=== PATIENT | female | born 1945 | race Caucasian/White ===

== ENCOUNTER 2017-12-26 15:47 | Outpatient (CLI) | payer MEDICARE, OTHER ==
[~2017-12-26] VITALS: Ht 165.1 cm; Wt 86.2 kg
[2017-12-26] MEDS ORDERED: BACL10TA PO (16:03)
[2017-12-26] MEDS ORDERED: ESTR0.5T VG (16:03)
[2017-12-26] MEDS ORDERED: CHOL200014 PO (16:03)
[2017-12-26] MEDS ORDERED: GABA-488 PO (16:03)
[2017-12-26] MEDS ORDERED: DILT240C53 PO (16:03)
[2017-12-26] MEDS ORDERED: DIPH25TA26 PO (16:03)
[2017-12-26] MEDS ORDERED: PANT40TA2 PO (16:03)
[2017-12-26] MEDS ORDERED: ALPR0.254 PO (16:03)
[2017-12-26] MEDS ORDERED: MULT-35 PO (16:03)
[2017-12-26] MEDS ORDERED: CITA20TA7 PO (16:03)
[2017-12-26 16:08] VITALS: BP 121/71
--- NOTE | 2017-12-26 18:33 | HISTORY AND PHYSICAL ---
DATE OF SERVICE: 12/26/2017 The patient to have outpatient surgery by Dr. Martinez. CHIEF COMPLAINT: Right foot surgery, hammertoe and something else to be done by Dr. Martinez. ALLERGIC TO MEDICATIONS: PENICILLIN. MEDICATIONS NOW ON: Vitamins, vitamin D, baclofen 10 mg, Protonix 40 mg, estradiol 0.5 mg, gabapentin 300 mg b.i.d., baclofen 10 mg 1 at h.s., Celexa 20 mg 1 a day, Xanax 0.25 p.r.n., Cartia 240/25, [id number] melatonin at bedtime. PAST SURGICAL HISTORY: Tonsils, gallbladder, appendectomy, complete hysterectomy, 3 breast biopsies, bladder, rectocele and cystocele done, has metal in chest to evaluate heart rate. FAMILY HISTORY: Sister diabetic, mom and dad heart disease and cancer, brother pacemaker. REVIEW OF SYSTEMS: HEAD: Denies headache, dizziness, fainting. EYES, EARS, NOSE AND THROAT: Denies diplopia, tinnitus, sore throat. RESPIRATORY: Denies asthma, TB, coughing congestion, wheezing never smoked. HEART: Denies heart problems or chest pain. Does have a heart rate problem at time and has a machine that she checks it out with. GASTROINTESTINAL: Appetite good. Denies blood in stools, diarrhea or constipation. GENITOURINARY: Denies blood, pain or frequency. PHYSICAL EXAMINATION: GENERAL: The patient is a white female, well-nourished, well developed in no acute respiratory distress at rest. VITAL SIGNS: Blood pressure 130/90, weight 190. EARS: No discharge. EYES: No conjunctivitis. The patient did have cataract surgeries with implants. Pharynx not inflamed. HEART: Regular rate and rhythm and at times goes into bigeminy which is normal. Sees the blueprinter about this. LUNGS: Clear. ABDOMEN: Soft. Liver and spleen nonpalpable. EXTREMITIES: No pretibial edema. Good dorsalis pedis pulses. ASSESSMENT AND PLAN: The patient is okay to have surgery. We will be on standby if has any problems. Job ID: [id number] DocumentID: [id number] Dictated Date: 12/26/2017 15:21:26 Stone Engraver Date: 12/26/2017 16:08:56 Dictated By: BERNA AYON DO
== END 2017-12-26 16:15 | disposition home or self-care (01) ==
LOC: PREOP 15:47
PROVIDERS: ATTEND Podiatrist Foot & Ankle Surgery
DX: Z01.818 Encounter for other preprocedural examination (principal); Z11.2 Encounter for screening for other bacterial diseases; G57.51 Tarsal tunnel syndrome, right lower limb; M72.2 Plantar fascial fibromatosis; M20.41 Other hammer toe(s) (acquired), right foot
CPT/HCPCS: 87081

== ENCOUNTER 2018-01-02 08:10 | Day surgery (SDC) | payer MEDICARE, OTHER ==
--- NOTE | 2017-12-30 08:26 | HISTORY AND PHYSICAL ---
DATE OF SERVICE: 01/02/2018 The patient to have outpatient surgery by Dr. Martinez. CHIEF COMPLAINT: Right foot surgery, hammertoe and something else to be done by Dr. Martinez. ALLERGIC TO MEDICATIONS: PENICILLIN. MEDICATIONS NOW ON: Vitamins, vitamin D, baclofen 10 mg, Protonix 40 mg, estradiol 0.5 mg, gabapentin 300 mg b.i.d., baclofen 10 mg 1 at h.s., Celexa 20 mg 1 a day, Xanax 0.25 p.r.n., Cartia 240/25, [id number] melatonin at bedtime. PAST SURGICAL HISTORY: Tonsils, gallbladder, appendectomy, complete hysterectomy, 3 breast biopsies, bladder, rectocele and cystocele done, has metal in chest to evaluate heart rate. FAMILY HISTORY: Sister diabetic, mom and dad heart disease and cancer, brother pacemaker. REVIEW OF SYSTEMS: HEAD: Denies headache, dizziness, fainting. EYES, EARS, NOSE AND THROAT: Denies diplopia, tinnitus, sore throat. RESPIRATORY: Denies asthma, TB, coughing congestion, wheezing never smoked. HEART: Denies heart problems or chest pain. Does have a heart rate problem at time and has a machine that she checks it out with. GASTROINTESTINAL: Appetite good. Denies blood in stools, diarrhea or constipation. GENITOURINARY: Denies blood, pain or frequency. PHYSICAL EXAMINATION: GENERAL: The patient is a white female, well-nourished, well developed in no acute respiratory distress at rest. VITAL SIGNS: Blood pressure 130/90, weight 190. EARS: No discharge. EYES: No conjunctivitis. The patient did have cataract surgeries with implants. Pharynx not inflamed. HEART: Regular rate and rhythm and at times goes into bigeminy which is normal. Sees the character actor about this. LUNGS: Clear. ABDOMEN: Soft. Liver and spleen nonpalpable. EXTREMITIES: No pretibial edema. Good dorsalis pedis pulses. ASSESSMENT AND PLAN: The patient is okay to have surgery. We will be on standby if has any problems. Job ID: [id number] DocumentID: [id number] Dictated Date: 12/26/2017 15:21:26 Semiconductor Processing Group Leader Date: 12/26/2017 16:08:56 Dictated By: BERNA AYON DO <Dictated by BERNA A GELLENDER DO> <Electronically signed by BERNA AYON DO> 12/27/17 0646
[~2018-01-02] VITALS: Ht 165.1 cm; Wt 86.2 kg
[2018-01-02 07:50] VITALS: BP 136/89
[~2018-01-02 08:10] MED LIST: ALPR0.254 PO; BACL10TA PO; CHOL200014 PO; CITA20TA7 PO; CLINDAMYCIN 600 MG/50 ML IVPB 50 ML IV ONE; DILT240C53 PO; DIPH25TA26 PO; ESTR0.5T VG; GABA-488 PO; LACTATED RINGERS 1,000 ML IV PRN; MULT-35 PO; PANT40TA2 PO
[2018-01-02] MEDS ORDERED: CATHETER FLUSH 10 ML SYR IV PRN (08:45)
[2018-01-02] MEDS ORDERED: DEXAMETHASONE 10 MG/ML (DECADRON) 1 ML VIAL ONE ×2 (08:52→09:22)
[2018-01-02] MEDS ORDERED: BUPIVACAINE 0.5% 30 ML (SENSORCAINE) VIAL ONE (08:52)
[2018-01-02] MEDS ORDERED: FAMOTIDINE 20MG/2ML IV (PEPCID) IV ONE (09:00)
[2018-01-02] MEDS ORDERED: ONDANSETRON 4 MG/2 ML (SDV) Z0FRAN ONE (09:22)
[2018-01-02] MEDS ORDERED: LIDOCAINE PF 2% 5 ML (XYLOCAINE) VIAL ONE (09:22)
[2018-01-02] MEDS ORDERED: MIDAZOLAM 2 MG/2 ML (VERSED) VIAL ONE (09:22)
[2018-01-02] MEDS ORDERED: proPOfol 200 MG/20 ML (DIPRIVAN) VIAL IV ONE ×2 (09:22→10:42)
[2018-01-02] MEDS ORDERED: fentaNYL INJECTION 100 MCG/2 ML AMP ONE (09:22)
[2018-01-02] MEDS ORDERED: SEVOFLURANE (ULTANE) 15 ML INHAL SOLN ONE (09:22)
--- NOTE | 2018-01-02 09:55 | Progress Note-Pre Operative ---
Pre-Operative Progress Note H&P Reviewed The H&P was reviewed, patient examined and no changes noted. Date Seen by Provider: Jan 02, 2018 Time Seen by Provider: 09:54 Date H&P Reviewed: Jan 02, 2018 Time H&P Reviewed: 09:54 Pre-Operative Diagnosis: Plantar Fasciitis, 2nd digit hammertoe, tarsal tunnel sydrome, right MARYLOU MAHONEY Q DPGregory Jan 02, 2018 9:55 am
[2018-01-02] MEDS ORDERED: LACTATED RINGERS 1,000 ML IV SCH (11:05)
--- NOTE | 2018-01-02 11:05 | Progress Note-Post Operative ---
Post-Operative Progess Note Surgeon (s)/Bag Making Machine Tender (s) Surgeon MARYLOU MAHONEY DPM Bag Making Machine Tender: none Pre-Operative Diagnosis Plantar Fasciitis, 2nd digit hammertoe, tarsal tunnel sydrome, right Post-Operative Diagnosis Same Procedure & Operative Findings Date of Procedure 01/02/18 Procedure Performed/Findings Open Plantar Facial Release, Reduction of 2nd digit Hammertoe, right Anesthesia Type General Estimated Blood Loss Estimated blood loss (mL): Minimal Specimens/Packing Specimens Removed None MARYLOU MAHONEY DPM Jan 02, 2018 11:05 am
[2018-01-02] MEDS ORDERED: CLIN150C2 PO (11:13)
[2018-01-02] MEDS ORDERED: ACHD5005 PO (11:13)
[2018-01-02] MEDS ORDERED: HYDROcodone/APAP 5 MG/325 MG (LORTAB) TAB PO PRN (11:15)
--- NOTE | 2018-01-02 11:51 | Diagnostic Imaging Report ---
INDICATION: Right foot surgery. TIME OF EXAM: 11:29 AM FINDINGS: 2 views right foot demonstrate K wire extending through the second toe. There appears to have been postsurgical changes involving the distal aspect of the proximal phalanx of the second toe. No acute fractures are seen. Metatarsals are intact. IMPRESSION: Postop changes. No acute feature is detected. Dictated by: Dictated on workstation # [id number]
[2018-01-02 12:00] VITALS: BP 135/69
[2018-01-02 12:01] VITALS: BP 135/69
[2018-01-02 12:30] VITALS: BP 128/65
--- NOTE | 2018-01-02 13:28 | Anesthesia-General Post-Op ---
General Patient Condition Mental Status/LOC: Same as Preop Cardiovascular: Satisfactory Nausea/Vomiting: Absent Respiratory: Satisfactory Pain: Controlled Complications: Absent Post Op Complications Complications None Follow Up Care/Instructions Patient Instructions None needed. Anesthesia/Patient Condition Patient Condition Patient was seen after surgery and prior to her discharge and she was doing well , no complaints, stable vital signs, no apparent adverse anesthesia problems. ELEAZAR GAMA DO Jan 02, 2018 13:28
--- NOTE | 2018-01-02 13:50 | Physical Therapy Ortho Eval ---
PT Orthopedic Evaluation Type of Surgery Tarsal Tunnel/Hammertoe Prior Level of Function Current Living Status: Spouse Locomotion (Upon Admit): Independent Established Durable Medical Eq: Front Wheeled Walker Subjective Subjective Agreeable. Reports she has used a walker before. Reports her will be able to assist as needed. Verbalized that she understood what partial weight bear meant. Entry Into Home: Stairs With Railing Steps Into Home: 2 Motor Control Motor Control: Motor Control WNL ROM ROM: WFL Strength Strength: WFL Transfer Transfers (B, C, W/C) (FIM): 6 Pt able to get in and out of bed without assist; able to transfer sit to stand without assist; required cues for hand placement (to reach back) to sit down. Gait Gait Assistive Device: FWW Right Lower Extremity: Right Weight Bearing Status RLE: Partial Weight Bearing Left Lower Extremity: Left Weight Bearing Status LLE: Full Weight Bearing Gait (FIM): 5 (6 post treatment) Distance (FIM): 3=150 ft Summary/Comments Safe steady gait and maintained PWB status. up/down a curb step with sBA and skilled cues for sequencing. Wheelchair Wheelchair Distance (FIM): 0=does not occure Treatment Rendered Treatment: Gait Train, Step Train Assessment/Goals Goal Time Frame: 1 Visit Safe Ambulation: Yes Plan Treatment Plan: Discharge PT/Family Agrees to Plan: Yes Time Time In: 1324 Time Out: 1348 Total Billed Treatment Time: 24 Billed Treatment Time visit EVL 24 PT/OT Therapy GCodes Therapy Functional Limitation: Physical Therapy Test(s)/Tool used to determine: Level of Assistance Scale Functional Limitation-Current Charge Code: MOBCUR Modifier: CJ Functional Limitation-Goal Charge Code: MOBGOAL Modifier: CI Functional Limitation-D/C Charge Codes: MOBDC Modifier: CI GHADA LOGAN PT Jan 02, 2018 13:50
--- NOTE | 2018-01-02 19:06 | OPERATIVE REPORT ---
DATE OF SERVICE: 01/02/2018 SURGEON: Yamile Mahoney DPM PREOPERATIVE DIAGNOSES: 1. Plantar fasciitis, right. 2. Hammer digit syndrome, right second digit. POSTOPERATIVE DIAGNOSES: 1. Plantar fasciitis, right. 2. Hammer digit syndrome, right second digit. PROCEDURE: 1. Open plantar fascial release, right. 2. Reduction of hammertoe, right second digit. WOUND CLASS: Clean. ANESTHESIA: General. HEMOSTASIS: Pneumatic thigh tourniquet at 300 mmHg. INDICATION: This is a 72-year-old female, who presents complaining of chronic pain to her right heel and second toe. Conservative therapy was met with a unsatisfactory result and the patient is agreeable to surgical intervention. After risks and complications were discussed at length, no guarantees were extended to the patient and she is willing to proceed. DESCRIPTION OF PROCEDURE: The patient was brought back to the operating table, placed in secure supine position. Appropriate time out was performed. General anesthetic was then induced. The right foot was anesthetized to the medial aspect of the right heel and to the right second toe in a digital block with 12 mL of 0.5% Marcaine plain. The right foot was then prepped and draped in normal sterile manner. The right foot was then elevated and allowed to exsanguinated and the tourniquet was then inflated to 300 mmHg. Attention was then directed to the medial aspect of the right heel where a 2.5 cm longitudinal linear incision was created from the anterior to posterior at the junction of the dorsal and plantar skin. The incision was deepened bluntly with dissection between the subcutaneous tissue and the plantar fascia. The superior and inferior aspect of the plantar fascia was palpated through with instrumentation. Next, the medial third of the plantar fascia was then incised utilizing dissecting scissors. Good tension release was noted to the plantar fascia percutaneously. A probe was introduced into the wound confirming release of the plantar fascia at least the medial third. The wound was flushed with copious amounts of normal saline and closure was then performed in layers. A deep closure was performed with 4-0 Vicryl, superficial with 4-0 Vicryl and skin closure with 4-0 Prolene in a horizontal mattress type stitch. Attention was then directed to the right second toe where a semirigid contracture was identified. A 5 cm longitudinal linear incision was created from the metatarsal phalangeal joint to the distal interphalangeal joint. The incision was deepened in the same plane with great care to identify and retract all vital neurovascular structures and only the necessary blood vessels were cauterized as encountered. The incision was deepened down to the extensor tendon where a Z slide lengthening was performed. The extensor tendon was reflected proximally and the extensor hassan released overlying pneumatic metatarsophalangeal joint. A dorsal capsulorrhaphy was performed to the metatarsophalangeal joint. This allowed the proximal phalanx to come down into more rectus alignment. The head of the proximal phalanx was then fashioned into a peg utilizing power sagittal saw and a power bur, and hole was created to the base of the middle phalanx with a power bur. The wound was flushed with copious amounts of normal saline. The arthrodesis site to the proximal interphalangeal joint was secured with a 0.054 smooth K wire. The excess K wire coming out the end of the toe was caught and a protective ball placed over the end of the wire. The wound was flushed once again after, which closure was performed in layers. Deep closure was performed with 3-0 Vicryl, superficial with 4-0 Vicryl, skin closed with 4-0 Prolene in a horizontal mattress type stitch. Postoperative injection consisted of 10 mL of 0.5% Marcaine plain injected in local infusion to the surgical sites. This was followed by 10 mg dexamethasone injected into the plantar fascia area of the right foot. Tourniquet was released noting appropriate capillary refill time to all digits of the right foot including the second digit. The dressing consisted of Betadine soaked Adaptic, sterile 4 x 4, sterile Kerlix all secured with a Coban wrap. The patient tolerated the anesthesia and procedure well and was transported from the operating room to the recovery area with vital signs stable. Postop instructions were dispensed to the patient. She is to be partial weightbearing on the right foot with a walker or crutches. She was given a prescription for clindamycin as well as hydrocodone. She is to follow up in the office in 10 days' period of time or sooner if necessary. Job ID: [id number] DocumentID: [id number] Dictated Date: 01/02/2018 11:21:31 Dimpling Machine Operator Date: 01/02/2018 19:05:18 Dictated By: YAMILE MAHONEY DPM
== END 2018-01-02 13:45 | disposition home or self-care (01) ==
LOC: SDC 08:10
PROVIDERS: ATTEND Podiatrist Foot & Ankle Surgery
DX: M72.2 Plantar fascial fibromatosis (principal); M20.41 Other hammer toe(s) (acquired), right foot; G47.33 Obstructive sleep apnea (adult) (pediatric); F41.9 Anxiety disorder, unspecified; K21.9 Gastro-esophageal reflux disease without esophagitis; Z79.899 Other long term (current) drug therapy; Z88.0 Allergy status to penicillin
CPT/HCPCS: 73620

== ENCOUNTER 2018-03-02 10:47 | Outpatient (CLI) | payer MEDICARE, OTHER ==
[~2018-03-02] VITALS: Ht 165.1 cm; Wt 88.0 kg
[~2018-03-02 10:47] MED LIST changes: +ACHD5005 PO; -CITA20TA7 PO; +CITA20TA9 PO; +CLIN150C2 PO; -CLINDAMYCIN 600 MG/50 ML IVPB 50 ML IV ONE; -LACTATED RINGERS 1,000 ML IV PRN
[2018-03-02 11:00] VITALS: BP 132/71
--- NOTE | 2018-03-02 12:12 | HISTORY AND PHYSICAL ---
DATE OF SERVICE: CHIEF COMPLAINT: "I have plantar fasciitis, left foot, had surgery by Dr. Martinez." ALLERGIC TO MEDICATIONS: PENICILLIN. MEDICATIONS: Now on vitamins, vitamin D, baclofen 10 mg 1 at bedtime, Protonix 40 mg 1 daily, estradiol 0.5 mg 3 pills in vagina 3 times a week, gabapentin 300 mg 2 a day, Celexa 20 mg 1 daily, Cartia 240 24 hours one daily, Xanax 0.25 mg p.r.n. SURGERIES: Rectocele, cystocele, right wrist, tonsils, complete hysterectomy, right foot. FAMILY HISTORY: Sister, diabetes. Both parents, cancer. Denies asthma, TB, heart disease, lung disease. REVIEW OF SYSTEMS: HEAD: Denies headache, dizziness, fainting. EYES, EARS, NOSE AND THROAT: Denies diplopia, tinnitus or sore throat. HEART: Denies heart murmur chest pain, shortness of breath. Does get skipped beats and have put in. LUNGS: Denies asthma, TB, coughing, congestion, wheezing. GASTROINTESTINAL: Appetite good. Denies blood in stools, diarrhea or constipation, also vomiting. GENITOURINARY: Denies blood, pain or frequency. PHYSICAL EXAMINATION: GENERAL: The patient is a white female, well nourished, well developed, in no acute respiratory distress at rest. VITAL SIGNS: Weight 193, blood pressure 140/82, pulse 70. EARS: No discharge. EYES: No conjunctivitis or icterus. THROAT: Noninflamed, has upper and lower dentures. NECK: Thyroid not enlarged. No abnormal cervical lymphadenopathy noted. HEART: Regular rate and rhythm. LUNGS: Clear to auscultation. ABDOMEN: Soft. Liver and spleen nonpalpable. EXTREMITIES: No pretibial edema. Good dorsalis pedis pulses. The patient okay for surgery, will be on standby if has any problems. Job ID: [id number] DocumentID: [id number] Dictated Date: 03/02/2018 10:33:14 Advertising Sales Representative Date: 03/02/2018 11:17:49 Dictated By: BERNA AYON DO
[2018-03-20] MEDS ORDERED: TRAM50TA2 PO (09:29)
== END 2018-03-02 11:15 | disposition home or self-care (01) ==
LOC: PREOP 10:47
PROVIDERS: ATTEND Podiatrist Foot & Ankle Surgery
DX: Z01.818 Encounter for other preprocedural examination (principal); Z11.2 Encounter for screening for other bacterial diseases; M72.2 Plantar fascial fibromatosis
CPT/HCPCS: 87081

== ENCOUNTER → 2018-10-04 | Outpatient (CLI) | payer MEDICARE, OTHER ==
[~2018-10-04] MED LIST changes: -CHOL200014 PO; +CHOL200085 PO; +TRAM50TA2 PO
--- NOTE | 2018-10-04 15:46 | Diagnostic Imaging Report ---
PROCEDURE: MRI left joint lower extremity without contrast. TECHNIQUE: Multiplanar, multisequence non contrast-enhanced MRI of the left lower extremity was accomplished. INDICATION: Left ankle pain. FINDINGS: The marrow signal intensity of the ankle is normal. No geographic marrow lesion is seen. No marrow edema is identified. The Achilles tendon has a normal signal intensity and normal morphology. The peroneus brevis and longus tendons are intact. The posterior tibialis, flexor digitorum, and flexor hallucis longus tendons appear to be intact. The anterior and posterior syndesmotic ligaments as well as the anterior and posterior talofibular ligaments appear to be intact. The superficial and deep bundles of the deltoid ligament appear to be intact. No definite space-occupying lesion within the tarsal tunnel is identified. There are some mid foot degenerative changes noted. Small amount of ankle fluid is present. IMPRESSION: Ankle joint effusion and midfoot degenerative change. No definite ligamentous or tendinous abnormality is detected. Dictated by: Dictated on workstation # [id number]
== END ==
LOC: RAD 11:29
PROVIDERS: ATTEND Podiatrist Foot & Ankle Surgery
DX: M19.072 Primary osteoarthritis, left ankle and foot (principal); G57.52 Tarsal tunnel syndrome, left lower limb; M76.822 Posterior tibial tendinitis, left leg
CPT/HCPCS: 73721

== ENCOUNTER 2018-11-02 05:56 | Outpatient (CLI) | payer MEDICARE, OTHER ==
[~2018-11-02] VITALS: Ht 165.1 cm; Wt 88.0 kg
[~2018-11-02 05:56] MED LIST changes: +CHOL200014 PO; -CHOL200085 PO
[2018-11-02] MEDS ORDERED: MULT-974 PO (11:57)
== END 2018-11-02 15:00 | disposition home or self-care (01) ==
LOC: PREOP 05:56
PROVIDERS: ATTEND Podiatrist Foot & Ankle Surgery
DX: Z01.818 Encounter for other preprocedural examination (principal)

== ENCOUNTER 2018-11-20 05:48 | Day surgery (SDC) | payer MEDICARE, OTHER ==
--- NOTE | 2018-11-02 10:59 | HISTORY AND PHYSICAL ---
DATE OF SERVICE: DATE OF ADMISSION: 11/06/2018. CHIEF COMPLAINT: The patient is to have foot surgery by Dr. Martinez. The patient is to have left foot surgery for tarsal tunnel this Tuesday. ALLERGIES: PENICILLIN. MEDICATIONS NOW ON: 1. Vitamins. 2. Baclofen 10 mg. 3. Protonix. 4. Gabapentin 300 mg. 5. Celexa 20 mg. 6. Xanax 0.25 p.r.n. 7. Cartia 240 per 24 hours one daily. 8. Lipitor 10 mg at bedtime. 9. Enteric coated aspirin 81 mg one daily. 10. Melatonin at bedtime. The patient last May had a stroke and put on aspirin and Lipitor. The patient has no residuals. PREVIOUS SURGERIES: Feet surgery, tonsils, appendectomy, gallbladder and three back surgeries. FAMILY HISTORY: Denies asthma, TB and diabetes. Sister diabetic, mother and father, heart disease and cancer. REVIEW OF SYSTEMS: HEAD: Denies headache, dizziness or fainting. EYES, EARS, NOSE AND THROAT: Denies diplopia, tinnitus and sore throat. HEART: Denies heart murmur and chest pain. LUNGS: Denies asthma, TB, coughing, congestion or wheezing. GASTROINTESTINAL: Appetite good. Denies blood in stools, diarrhea or constipation. GENITOURINARY: Denies dysuria, pyuria or hematuria. PHYSICAL EXAMINATION: GENERAL: The patient is a white female, well nourished, well developed, in no acute respiratory distress at rest. VITAL SIGNS: Weight is 192. Blood pressure is 120/70. Pulse is 70. EARS: No drainage. EYES: No conjunctivitis or icterus. THROAT: Not inflamed. NECK: Thyroid not enlarged. No abnormal cervical lymphadenopathy noted. HEART: Regular rate and rhythm. LUNGS: Clear to auscultation. ABDOMEN: Soft. EXTREMITIES: No pretibial edema. Good dorsalis pedis pulses. The patient is okay to have surgery. The patient should stop taking her aspirin 5 days before surgery. Job ID: [id number] DocumentID: [id number] Dictated Date: 11/02/2018 10:19:38 Motor And Generator Assembler Date: 11/02/2018 10:58:32 Dictated By: BERNA AYON DO
[~2018-11-20] VITALS: Ht 165.1 cm; Wt 85.5 kg
[~2018-11-20 05:48] MED LIST changes: +MULT-974 PO
[2018-11-20 06:15] VITALS: BP 118/71
[2018-11-20] MEDS ORDERED: VANCOMYCIN INJECTION 1,000 MG in NS (IVPB) 250 ML IV ONE (06:15)
[2018-11-20] MEDS: LACTATED RINGERS 1,000 ML IV PRN ×2 (06:35→09:02)
[2018-11-20] MEDS ORDERED: fentaNYL INJECTION 100 MCG/2 ML AMP ONE (06:53)
[2018-11-20] MEDS ORDERED: MIDAZOLAM 2 MG/2 ML (VERSED) VIAL ONE (06:53)
[2018-11-20] MEDS ORDERED: ASPI-586 PO (06:58)
[2018-11-20] MEDS ORDERED: BUPIVACAINE 0.5% 30 ML (SENSORCAINE) VIAL ONE (07:03)
[2018-11-20] MEDS ORDERED: DEXAMETHASONE 10 MG/ML (DECADRON) 1 ML VIAL ONE (07:03)
--- NOTE | 2018-11-20 07:37 | Progress Note-Pre Operative ---
Pre-Operative Progress Note H&P Reviewed The H&P was reviewed, patient examined and no changes noted. Date Seen by Provider: Nov 20, 2018 Time Seen by Provider: 07:30 Date H&P Reviewed: Nov 20, 2018 Time H&P Reviewed: 07:30 Pre-Operative Diagnosis: Tarsal Tunnel Syndrome left MARYLOU MAHONEY DPM Nov 20, 2018 07:37
[2018-11-20] MEDS ORDERED: SEVOFLURANE (ULTANE) 15 ML INHAL SOLN ONE ×3 (08:40→09:19)
[2018-11-20] MEDS ORDERED: LIDOCAINE PF 2% 5 ML (XYLOCAINE) VIAL ONE (08:40)
[2018-11-20] MEDS ORDERED: proPOfol 200 MG/20 ML (DIPRIVAN) VIAL IV ONE (08:40)
[2018-11-20] MEDS ORDERED: ONDANSETRON 4 MG/2 ML (SDV) Z0FRAN ONE (08:41)
[2018-11-20] MEDS ORDERED: LACTATED RINGERS 1,000 ML IV ONE (08:57)
[2018-11-20] MEDS ORDERED: LACTATED RINGERS 1,000 ML IV SCH (09:22)
--- NOTE | 2018-11-20 09:22 | Progress Note-Post Operative ---
Post-Operative Progess Note Surgeon (s)/Dressage Judge (s) Surgeon MARYLOU MAHONEY DPM Dressage Judge: none Pre-Operative Diagnosis Tarsal Tunnel Syndrome left Post-Operative Diagnosis Tarsal Tunnel Syndrome, Plantar Fasciitis, left Procedure & Operative Findings Date of Procedure 11/20/18 Procedure Performed/Findings Tarsal Tunnel Release, Open Plantar Fasciectomy, left foot Anesthesia Type General Estimated Blood Loss Estimated blood loss (mL): Minimal Specimens/Packing Specimens Removed none MARYLOU MAHONEY DPM Nov 20, 2018 09:22
[2018-11-20] MEDS ORDERED: ACHD5005 PO (09:26)
[2018-11-20] MEDS ORDERED: ONDANSETRON 4 MG/2 ML (SDV) Z0FRAN IVP PRN (09:30)
[2018-11-20] MEDS ORDERED: HYDROcodone/APAP 5 MG/325 MG (LORTAB) TAB PO PRN (09:30)
[2018-11-20] MEDS ORDERED: MEPERIDINE (DEMEROL) INJ 50 MG/ML IVP ONE (09:30)
[2018-11-20] MEDS ORDERED: morphine INJ 10 MG/ML 1ML (SYR OR VIAL) IVP ONE (09:30)
[2018-11-20 10:00] VITALS: BP 128/72
[2018-11-20 10:30] VITALS: BP 140/68
--- NOTE | 2018-11-20 10:58 | Physical Therapy Ortho Eval ---
PT Orthopedic Evaluation Type of Surgery tarsal tunnel left foot Prior Level of Function Current Living Status: Spouse Locomotion (Upon Admit): Independent Established Durable Medical Eq: Front Wheeled Walker Subjective Subjective Patient in bed pre tx, agrees to PT, has no complaints of pain, states her left foot is pretty numb. Patient has a splint on her left foot and ankle. Entry Into Home: Stairs With Railing Steps Into Home: 2 Motor Control NT ROM NT Strength RLE 4/5 gross Transfer Transfers (B, C, W/C) (FIM): 4 Gait Gait Assistive Device: FWW Left Lower Extremity: Left Weight Bearing Status LLE: Non Weight Bearing Gait (FIM): 1 Distance: 20' Gait Level of Assist: 4 Summary/Comments Patient ambulated 20' with a rolling walker with min assist. Patient is retropulsive immediately upon standing, unsteady with ambulation at first even after standing at the edge of the bed for a few minutes. Poor endurance, however, patient is able to maintain her weight bearing status on the left leg. Patient not able to perform a step at this time. She is not able to lift her right foot off the floor far enough for this yet. Treatment Rendered Treatment: Therapeutic Exercises, Gait Train Exercise Instruction: Heel Slides LAQ Assessment/Goals Goal Time Frame: 1 Visit Plan Treatment Plan: Discharge PT/Family Agrees to Plan: Yes Time Time In: 1030 Time Out: 1042 Total Billed Treatment Time: 12 Billed Treatment Time 1 visit EVM 12' No LOU NGUYEN PT Nov 20, 2018 10:58
[2018-11-20 11:00] VITALS: BP 140/68
[2018-11-20 11:20] VITALS: BP 140/68
--- NOTE | 2018-11-20 14:22 | OPERATIVE REPORT ---
DATE OF SERVICE: 11/20/2018 SURGEON: Yamile Martinez DPM. PREOPERATIVE DIAGNOSES: 1. Tarsal tunnel syndrome, left foot. 2. Plummer's neuritis, left foot. 3. Plantar fasciitis, left foot. POSTOPERATIVE DIAGNOSES: 1. Tarsal tunnel syndrome, left foot. 2. Plummer's neuritis, left foot. 3. Plantar fasciitis, left foot. PROCEDURES: 1. Tarsal tunnel release, left. 2. Open plantar fasciectomy, left foot. 3. Release of Plummer's nerve left foot. WOUND CLASS: Clean. ANESTHESIA: General. HEMOSTASIS: Pneumatic thigh tourniquet at 250 mmHg. INDICATIONS: This is a 73-year-old female who presents complaining of a painful left foot and heel. Conservative therapy has been with unsatisfactory results and the patient is agreeable to surgical intervention after risks and complications were discussed at length. No guarantees were extended to the patient and she is willing to proceed. DESCRIPTION OF PROCEDURE: The patient was brought back to the operative table, placed in secure supine position. Appropriate time out was performed. A pneumatic thigh tourniquet was placed on the left lower extremity over several layers of padding. General anesthetic was then induced. Next, utilizing aseptic technique, a proximal tarsal tunnel block was performed with great care to aspirate to inject into any vascular structures. The left foot was then prepped and draped in the normal sterile manner. The left foot was then elevated and allowed to exsanguinate after which the tourniquet was inflated to 250 mmHg. Attention was then directed to the medial aspect of the left foot where a 7 cm longitudinal curvilinear incision was created from just posterior to the medial malleolus to the inferior aspect of the calcaneus and anterior to the weightbearing surface of the left calcaneus. The incision was deepened in the same plane with great care to identify and retract all vital neurovascular structures. All the necessary blood vessels were cauterized as encountered. The incision was deepened down to the deep fascia where the flexor retinaculum was identified, tented and released with great care to protect the underlying neurovascular structures. This exposed the vena comitantes as well as the posterior tibial artery. Next, the deep fascia overlying the abductor hallucis muscle belly was released. The tarsal tunnel was continued plantarly through the portal, which was then dilated and the abductor and muscle belly was carefully dissected from the deep fascia and Metzenbaum scissors. This allowed for the release of the medial calcaneal nerve, which was followed to its plantar orientation just below the quadratus plantae and around the quadratus plantae area. The tourniquet was released noting no active bleeders. Attention was then directed to the plantar medial aspect of the left heel where the medial band of the plantar fascia was released as well as the medial section of the central plantar was also released utilizing Metzenbaum scissors. Percutaneous palpation of the medial band of the plantar fascia noted good reduction of the tension. The wounds were flushed with copious amounts of normal saline and closure was then released. Closure was then performed. The subcutaneous tissue was reapproximated utilizing with 4-0 Vicryl, skin closed with 4-0 Prolene in a simple interrupted as well as a horizontal mattress type stitch. Postoperative injection consisted of 10 mL of 0.5% Marcaine injected in a local infused into the surgical site in addition to 10 mg of dexamethasone. Postoperative dressing consisted of Betadine soaked Adaptic, sterile 4 x 4's, Kerlix, soft roll, ABD pads, a posterior splint and Harry wraps. The patient tolerated the anesthesia and procedure well, was transported from the operating room to the recovery area with vital signs stable and vascular status intact to all digits of the left foot. She is to be nonweightbearing on the left foot was given a prescription for Vicodin. She has been instructed to be nonweightbearing with toe-touch for balance only utilizing crutches or a walker. She is to follow up in my office in 10 days' period of time or sooner if necessary. Job ID: [id number] DocumentID: [id number] Dictated Date: 11/20/2018 09:33:59 Wire Frame Lampshade Maker Date: 11/20/2018 14:22:29 Dictated By: SAVANNA KELLY
== END 2018-11-20 11:20 | disposition home or self-care (01) ==
LOC: SDC 05:48
PROVIDERS: ATTEND Podiatrist Foot & Ankle Surgery
DX: G57.52 Tarsal tunnel syndrome, left lower limb (principal); M72.2 Plantar fascial fibromatosis; G47.33 Obstructive sleep apnea (adult) (pediatric); M06.9 Rheumatoid arthritis, unspecified; F41.9 Anxiety disorder, unspecified; Z11.2 Encounter for screening for other bacterial diseases; Z86.73 Personal history of transient ischemic attack (TIA), and cerebral infarction without residual deficits; Z79.899 Other long term (current) drug therapy; Z79.82 Long term (current) use of aspirin; Z88.0 Allergy status to penicillin
CPT/HCPCS: 87081

== ENCOUNTER → 2023-07-27 | Outpatient (CLI) | payer MEDICARE, OTHER ==
[~2023-07-27] MED LIST changes: +ALPR.25T PO; -ALPR0.254 PO; +ASPI-586 PO; -TRAM50TA2 PO; +TRM50T PO
== END | disposition home or self-care (01) ==
LOC: PREOP 05:46
PROVIDERS: ATTEND Podiatrist Foot & Ankle Surgery
DX: Z01.818 Encounter for other preprocedural examination (principal)

== ENCOUNTER 2023-08-05 05:59 | Day surgery (SDC) | payer MEDICARE, OTHER ==
[2023-08-05] VITALS (11 sets, daily range): BP systolic 134–161; BP diastolic 68–82
[~2023-08-05] VITALS: Ht 165.1 cm; Wt 84.1 kg
[~2023-08-05 05:59] MED LIST changes: +ASCO100024 PO; +ATOR40TA70 PO; -ESTR0.5T VG; +ESTR0.5T2 VG; +HYDR-3584 PO; +VITA100033 PO
[2023-08-05] MEDS ORDERED: LACTATED RINGERS 1,000 ML 1,000 ML IV PRN (06:30)
[2023-08-05] MEDS ORDERED: VANCOMYCIN INJECTION 1,000 MG in NS (IVPB) 250 ML 250 ML IV ONE (06:30)
[2023-08-05] MEDS ORDERED: LIDOCAINE PF 2% 5 ML VIAL ONE (07:05)
[2023-08-05] MEDS ORDERED: fentaNYL INJECTION 100 MCG/2 ML VIAL ONE (07:05)
[2023-08-05] MEDS ORDERED: proPOfol INJECTION 200 MG/20 ML VIAL IV ONE (07:05)
[2023-08-05] MEDS ORDERED: dexAMETHasone INJ 10 MG/ML 1 ML VIAL ONE (07:05)
[2023-08-05] MEDS ORDERED: ONDANSETRON INJECTION 4 MG/2 ML (SDV) ONE (07:05)
[2023-08-05] MEDS ORDERED: BUPIVACAINE 0.5% 30 ML VIAL ONE (07:18)
[2023-08-05] MEDS ORDERED: LIDOCAINE 1% INJ 20 ML VIAL ONE (07:18)
--- NOTE | 2023-08-05 07:28 | Progress Note-Pre Operative ---
Pre-Operative Progress Note Date of Available H&P: Aug 05, 2023 Date H&P Reviewed: Aug 05, 2023 Time H&P Reviewed: 07:27 Pre-Operative Diagnosis: hammertoes 2, 3, 4, 5, right foot MARYLOU MAHONEY DPM Aug 05, 2023 07:28
[2023-08-05] MEDS ORDERED: BUPIVACAINE 0.5% 30 ML VIAL INJ ONE (08:06)
[2023-08-05] MEDS ORDERED: LIDOCAINE 1% INJ 20 ML VIAL INJ ONE (08:07)
[2023-08-05] MEDS ORDERED: SEVOFLURANE (ULTANE) 15 ML INHAL SOLN ONE (09:04)
--- NOTE | 2023-08-05 09:38 | Progress Note-Post Operative ---
Post-Operative Progess Note Surgeon (s)/Power Crane Operator (s) Surgeon MARYLOU MAHONEY DPM Power Crane Operator: none Pre-Operative Diagnosis hammertoes 2, 3, 4, 5, right foot Post-Operative Diagnosis same Procedure & Operative Findings Date of Procedure 08/05/23 Procedure Performed/Findings Reduction of hammertoes, right 2nd, 3rd, 4th and 5th digits Anesthesia Type general Estimated Blood Loss Estimated blood loss (mL): minimal Specimens/Packing Specimens Removed none MARYLOU MAHONEY DPM Aug 05, 2023 09:38
[2023-08-05] MEDS ORDERED: HYDROmorphone INJECTION 2 MG/ML VIAL IV ONE (09:45)
[2023-08-05] MEDS ORDERED: morphine INJ 10 MG/ML 1ML (SYR OR VIAL) IVP ONE (09:45)
[2023-08-05] MEDS ORDERED: MEPERIDINE INJ 50 MG/ML VIAL IVP ONE (09:45)
[2023-08-05] MEDS ORDERED: ONDANSETRON INJECTION 4 MG/2 ML (SDV) IVP PRN (09:45)
--- NOTE | 2023-08-05 09:45 | Anesthesia-General Post-Op ---
General Patient Condition Mental Status/LOC: Same as Preop Cardiovascular: Satisfactory Nausea/Vomiting: Absent Respiratory: Satisfactory Pain: Controlled Complications: Absent Post Op Complications Complications None Follow Up Care/Instructions Patient Instructions None needed. Anesthesia/Patient Condition Patient Condition Patient is doing well, no complaints, stable vital signs, no apparent adverse anesthesia problems. No complications reported per nursing. SCARLET GIRON CRNA Aug 05, 2023 09:45
[2023-08-05] MEDS ORDERED: ACHD5005 PO (10:11)
[2023-08-05] MEDS ORDERED: DOXY100T2 PO (10:11)
[2023-08-05] MEDS ORDERED: HYDROcodone/ACETAMINOPHEN 5 MG/325 MG TABLET PO ONE (11:30)
[2023-08-05] MEDS ORDERED: HYDROcodone/ACETAMINOPHEN 5 MG/325 MG TABLET ONE (11:33)
--- NOTE | 2023-08-05 18:10 | OPERATIVE REPORT ---
DATE OF SERVICE: 08/05/2023 SURGEON: Yamile Mahoney DPM. PREOPERATIVE DIAGNOSIS: Hammer digit syndrome, right second, third, fourth and fifth digits. POSTOPERATIVE DIAGNOSIS: Hammer digit syndrome, right second, third, fourth and fifth digits. PROCEDURE: Reduction of hammertoes, right second, third, fourth and fifth digits. WOUND CLASS: Clean. ANESTHESIA: General. HEMOSTASIS: Pneumatic thigh tourniquet at 250 mmHg. INDICATIONS: This 77-year-old female presents complaining of painful hammertoes of the right foot. Conservative therapy is met with unsatisfactory results and the patient is agreeable to surgical intervention after risks and complications were discussed at length. No guarantees were extended to the patient and she is willing to proceed. DESCRIPTION OF PROCEDURE: The patient was brought back to the operating table, placed in secure supine position. Appropriate timeout was performed. A general anesthetic was then induced. Local anesthetic was induced to the right second, third and fourth digits utilizing 1:1 mixture of 1% Xylocaine, 0.5% Marcaine, injected in a digital block, which was included 10 mL of the mixture. The right foot was then prepped and draped in normal sterile manner. The right foot was then elevated, allowed to exsanguinate after which the thigh tourniquet was inflated to 250 mmHg. Attention was then directed to the dorsal aspect of the right second, third, fourth and fifth digits where an incision was created from the metatarsophalangeal joint, extending to the distal interphalangeal joint of the digits. The incision was deepened in the same plane with great care to identify and retract all vital neurovascular structures, and only necessary blood vessels were cauterized as encountered. The incision was deepened down to the extensor tendon where a Z-slide lengthening was performed to the second, third, fourth and fifth digits. The extensor tendon was reflected proximally and the extensor hoods released, overlying the metatarsophalangeal joint. Next, a dorsal capsulorrhaphy to the second, third, fourth and fifth metatarsophalangeal joints was performed as well as release of the medial and lateral collateral ligaments. This allowed the proximal phalanx to come down into a more rectus alignment, especially to the right second digit. Next, attention was then directed to the proximal interphalangeal joint of the second, third and fourth digits where a capsulorrhaphy was performed as well as release of the medial and lateral collateral ligaments. The head of the proximal phalanx was then fashioned into a peg with a power sagittal saw and power bur and a hole created in the middle phalanx with the power bur. This allowed for the peg-in-hole type arthrodesis. The digits were secured in a rectus position utilizing a 0.054 smooth K-wire, driven from down the toe, after which the wire was cut and a protective ball placed over the end of the wires. Excellent reduction of hammertoes were noted to the second, third and fourth digits. The wounds were flushed with copious amounts of normal saline. Attention was then directed to the right fifth toe where dissection was carried out to the proximal interphalangeal joint where the medial and lateral collateral ligaments were released as well as capsulorrhaphy was performed. The hypertrophic head of the proximal phalanx was resected with the power sagittal saw. The wound was flushed with copious amounts of normal saline. Closure was then performed in layers. Deep closure including the extensor tendons were repaired utilizing 3-0 Vicryl, superficial closure was performed with 4-0 Vicryl and skin closure was performed with V-Loc with a subcuticular stitch. Steri-Strips were then applied as well. Postoperative injection consisted of 10 mL of 0.5% Marcaine injected in a local infusion to the surgical site. Postoperative dressing consisted of Betadine-soaked Adaptic, sterile 4 x 4, sterile Kerlix, all secured with a Coban wrap. The patient tolerated the anesthesia and procedure well and was transported from the operating room to the recovery area with vital signs stable and vascular status intact to all digits of the right foot. She is to follow up in 10 days' period of time or sooner, if necessary. She is to have limited weightbearing on the right lower extremity with crutches or walker, but she is able to weightbear for short period of time or for balance. Job ID: [id number] DocumentID: [id number] Dictated Date: 08/05/2023 09:54:27 Trailhead Maintenance Worker Date: 08/05/2023 18:08:00 Dictated By: YAMILE MAHONEY DPM
== END 2023-08-05 12:00 | disposition home or self-care (01) ==
LOC: SDC 05:59
PROVIDERS: ATTEND Podiatrist Foot & Ankle Surgery
DX: M20.41 Other hammer toe(s) (acquired), right foot (principal); G47.33 Obstructive sleep apnea (adult) (pediatric)
CPT/HCPCS: 28285 ×4; 87081; C1713